=== PATIENT | male | born 1960 | race Caucasian/White ===

== ENCOUNTER 2017-03-02 15:17 | Emergency (ER) | payer MEDICAID ==
[~2017-03-02] VITALS: Ht 195.6 cm; Wt 90.9 kg
[2017-03-02] MEDS ORDERED: HYDR-305 PO (15:47)
[2017-03-02] MEDS ORDERED: TraMADol HCL 50 MG TABLET PO ONE (17:00)
[2017-03-02 18:16] VITALS: BP 145/92
== END 2017-03-02 18:35 | disposition home or self-care (01) ==
LOC: EMS 15:21
DX: S13.4XXA Sprain of ligaments of cervical spine, initial encounter (principal); G89.29 Other chronic pain; F17.210 Nicotine dependence, cigarettes, uncomplicated; Z88.6 Allergy status to analgesic agent; W11.XXXA Fall on and from ladder, initial encounter; Y93.89 Activity, other specified; Y92.89 Other specified places as the place of occurrence of the external cause; Y99.8 Other external cause status
CPT/HCPCS: 99283